=== PATIENT | female | born 1995 | race Caucasian/White ===

== ENCOUNTER → 2018-08-16 | Day surgery (SDC) | payer OTHER ==
[~2018-08-16] MED LIST: ACETAMINOPHEN 1000 MG/100 ML 100 ML IV ONE; ACETAMINOPHEN 1000 MG/100 ML IV ONE; ATROPINE SULFATE 1 MG/ML VIAL ONE; BUPIVACAINE 0.25% 30ML SDV INJ ONE; DEXAMETHASONE SOD PHOS INJ 4 MG/ML VIAL ONE; FENTANYL CITRATE/PF 100MCG/2 ML INJ ONE; FLAGYL500 MG PO; GLYCOPYRROLATE INJ 1MG/ 5 ML SYR ONE; IBUPROFEN400 MG PO; KETOROLAC TROME10 MG PO; LIDOCAINE HCL 2% LOCAL INJ 5 ML SDV VIAL INJ ONE; MIDAZOLAM HCL 2 MG/2 ML VIAL ONE; NEOSTIGMINE 5 MG/5ML SYR ONE; ONDANSETRON HCL INJ 2 MG/ML VIAL ONE; OXYMETAZOLINE HCL 0.05% NAS 1 SPRAY BTL ONE; PEPCID20 MG PO; PHENERGAN SUPP25 MG RC; PHENERGAN25 MG/1 ML PO; PREDNISONE20 MG PO; PROPOFOL IV EMULSION 10 MG/ML 20 ML VIAL ONE; ROCURONIUM BROMIDE 10 MG/ML 5ML VIAL ONE; SEVOFLURANE INHAL SOLN 250 ML PEN BTL ONE; ULTRAM50 MG PO; ZOFRAN4 MG PO
--- NOTE | 2018-08-16 13:24 | Operative Report ---
DATE OF PROCEDURE: August 16, 2018 PREOPERATIVE DIAGNOSES 1. Chronic adenotonsillitis. 2. Adenotonsillar hypertrophy. POSTOPERATIVE DIAGNOSES 1. Chronic adenotonsillitis. 2. Adenotonsillar hypertrophy. PROCEDURES: Tonsillectomy and adenoidectomy. SIGNIFICANT FINDINGS: Tonsils 3+/3+, scarred. Adenoids were mildly enlarged. INSPECTOR STRUCTURAL BONDING: None. ANESTHESIA: General endotracheal tube anesthesia. SPECIMENS REMOVED: Tonsils (adenoids coblated). ESTIMATED BLOOD LOSS: Less than 1 mL. COMPLICATIONS: None. INDICATIONS: Patient is a 23-year-old white female with a 4-year history of frequent tonsillar infections occurring 3 to 4 times per year. Each episode manifests as sore throat, odynophagia, intermittent fever, and enlarged, erythematous, exudative tonsils. She has been refractory to multiple courses of antibiotics which help temporarily. On examination, tonsils are 3+/3+ and scarred bilaterally. She is scheduled for tonsillectomy and adenoidectomy for the treatment of chronic adenotonsillitis and adenotonsillar hypertrophy. Risks and complications of the procedures were thoroughly discussed with the patient, and they include infection; bleeding; scarring; failure to improve; need for additional operations; damage to teeth, gums, tongue, and lips; chronic pain; persistent throat infections; voice changes; numbness of the tongue; inability to taste; leakage of fluid through the nose when drinking liquids, scarring of the pharynx resulting in permanent and worse nasal obstruction; need for blood transfusions; damage to surrounding nerves, blood vessels, and muscles. She fully understands and gives consent. PROCEDURE: Patient was taken to the operating room and placed supine on the operating table where general anesthesia was achieved through orotracheal intubation. Eyes were taped. Shoulder roll was placed. Head and body were draped. Table was turned 90 degrees with the head toward the surgeon. Decadron was administered. Niyah-Supa mouth gag was inserted without difficulty and placed in suspension on a Enamorado stand. There was no evidence of bifid uvula, diastasis of the muscular uvulae or a notched hard palate. Red rubber catheters were then inserted into the nose and brought out through the mouth to retract the soft palate. Examination of the nasopharynx revealed the adenoids to be mildly hypertrophied. Tonsils were 3+/3+ bilaterally. The left tonsil was grasped with a tonsillar Allis clamp and was removed with the ArthroCare Coblator on a setting of 6 on cut mode, taking care to stay right on the capsule of the tonsil. Right tonsil was removed in the same way. Both tonsillar beds were scarred, especially inferiorly. Hemostasis was obtained with the Coblator on a setting of 3 on coag mode. Following this, the adenoids were then removed with the ArthroCare Coblator on a setting of 8 on cut mode, taking care to avoid trauma to the torus tubarius bilaterally. Hemostasis was obtained with the Coblator on a setting of 3 and coag mode. Following this, injection with 3 mL of 1/4 percent plain Marcaine was injected into the free edges of the anterior and posterior tonsillar pillars bilaterally. Thorough irrigation was then performed. Stomach contents were suctioned with an NG tube. The red rubber catheters and Niyah-Supa mouth gag were then removed without difficulty revealing no trauma to the teeth, gums, tongue, and lips. Patient was awakened in the operating room, extubated and taken to recovery room in good condition. Job#: [id number] KIMI DYSON
[2018-08-16 13:55] VITALS: BP 101/60
== END | disposition home or self-care (01) ==
LOC: OR 09:41
PROVIDERS: ATTEND Otolaryngology
DX: J35.03 Chronic tonsillitis and adenoiditis (principal); E28.2 Polycystic ovarian syndrome; J45.909 Unspecified asthma, uncomplicated; E66.9 Obesity, unspecified; K21.9 Gastro-esophageal reflux disease without esophagitis; F41.9 Anxiety disorder, unspecified; F31.9 Bipolar disorder, unspecified; F17.210 Nicotine dependence, cigarettes, uncomplicated; Z88.0 Allergy status to penicillin; Z88.8 Allergy status to other drugs, medicaments and biological substances
CPT/HCPCS: 42821; 81025; 88304; J0131; J0461; J1100; J2001; J2250; J2405; J2704; J3490

== ENCOUNTER 2018-08-21 03:03 | Observation (INO) | payer OTHER ==
[~2018-08-21] VITALS: Ht 154.9 cm; Wt 114.8 kg
[2018-08-21] MEDS ORDERED: ONDANSETRON HCL INJ 2 MG/ML VIAL IV STA (03:12)
[2018-08-21] MEDS ORDERED: SODIUM CHLORIDE 0.9% 1000ML 1,000 ML IV ONE (03:15)
[2018-08-21 03:28] LABS: BASOPHILS % 0.3 % (0.0-1.0); EOSINOPHILS # (AUTO) 0.3 (0.0-0.4); HEMATOCRIT 40.9 % (34.2-44.1); HEMOGLOBIN 14.4 g/dL (12.0-16.0); LYMPHOCYTES # (AUTO) 2.8 (1.0-3.2); LYMPHOCYTES % 29.7 % (18.0-39.1); MEAN CORPUSCULAR HEMOGLOBIN 30.3 pg (28-32); MEAN CORPUSCULAR HGB CONC 35.2 g/dL (31-35); MEAN CORPUSCULAR VOLUME 86.1 fL (81-99); MONOCYTES # (AUTO) 0.5 (0.2-0.8); MONOCYTES % 4.8 % (4.4-11.3); NEUTROPHILS # (AUTO) 5.8 (2.1-6.9); NEUTROPHILS % 61.8 % (38.7-80.0); PLATELET COUNT 247 x10e3/uL (140-360); RED BLOOD COUNT 4.75 x10e6/uL (3.6-5.1); RED CELL DISTRIBUTION WIDTH 11.9 % (11.7-14.4)
[2018-08-21 03:34] LABS: CLARITY,URINE SL CLOUDY (CLEAR); COLOR,URINE ORANGE (YELLOW); LEUKOCYTE ESTERASE ,URINE TRACE (NEGATIVE); NITRITE,URINE NEGATIVE (NEGATIVE); PROTEIN,URINE DIPSTICK TRACE (NEGATIVE)
[2018-08-21 03:35] LABS: BACTERIA,URINE FEW /HPF; BILIRUBIN,URINE 1+ (NEGATIVE); EPITHELIAL CELLS,URINE FEW /LPF; KETONES,URINE 1+ (NEGATIVE); RBC,URINE 0-5 /HPF (0-5); URINE UROBILINOGEN 8 mg/dL (0.2 - 1); WBC,URINE (MAN) 0-5 /HPF (0-5)
[2018-08-21 03:46] LABS: ALANINE AMINOTRANSFERASE 130 IU/L (0-55); ALBUMIN 4.3 g/dL (3.5-5.0); ALBUMIN/GLOBULIN RATIO 1.2 (0.8-2.0); ALKALINE PHOSPHATASE 184 IU/L (40-150); ANION GAP 17.7 mmol/L (8-16); BLOOD UREA NITROGEN 10 mg/dL (7-26); BUN/CREATININE RATIO 15 (6-25); CALCIUM 10.2 mg/dL (8.4-10.2); CARBON DIOXIDE 23 mmol/L (22-29); CHLORIDE 99 mmol/L (98-107); CREATININE, SERUM 0.67 mg/dL (0.57-1.11); EST GLOMERULAR FILTRATION RATE > 60 ML/MIN (60-); GLUCOSE 97 mg/dL (74-118); POTASSIUM 3.7 mmol/L (3.5-5.1); SODIUM 136 mmol/L (136-145)
[2018-08-21] MEDS ORDERED: KETOROLAC TROMETHAMINE 30 MG/ML VIAL IV STA (04:14)
--- NOTE | 2018-08-21 04:17 | NUR ---
PT REQUESTING PAIN MEDCATION, AWARE, MEDICATED PER ORDERS
[2018-08-21 04:22] LABS: AMYLASE 68 U/L (25-125); LIPASE 63 U/L (8-78)
[2018-08-21] MEDS ORDERED: MORPHINE SULFATE 2 MG/ML SYR IV PRN (06:45)
--- NOTE | 2018-08-21 06:45 | NUR ---
report to arnold cesar
--- NOTE | 2018-08-21 06:45 | NUR ---
ASSUMED CARE AT THIS TIME. PATIENT AWAKE AND ALERT SITTING IN CHAIR IN LOBBY. RESP EVEN AND UNLABORED. SKIN WARM AND DRY. NO SIGNS OF ACUTE DISTRESS NOTED AT THIS TIME. DENIES ANY C/O AT THIS TIME.
[2018-08-21] MEDS: SODIUM CHLORIDE 0.9% 1000ML 1,000 ML IV SCH ×2 (07:23→14:52)
--- NOTE | 2018-08-21 07:31 | Diagnostic Imaging Report ---
EXAM: Right Upper Quadrant Ultrasound INDICATION: ^elevated lfts ^[id number] ^[id number] ^Y COMPARISON: None. TECHNIQUE: Transverse and longitudinal images of the right upper abdomen were obtained. Note: Some of the measurements have been obtained off line by radiologist. FINDINGS: Liver: Size: 13.6 cm in the right midclavicular line, normal Appearance: Heterogeneous echogenicity, smooth contour. Bright echogenic dots throughout a background of decreased liver parenchymal echogenicity with a starry grace appearance. Mass: No focal masses Gallbladder: Stones/Sludge: Mild sludge Wall: 0.3 cm Appearance: No wall thickening, pericholecystic fluid or hydrops. Sonographic Ayala's Sign: Negative Bile Ducts: Intrahepatic Ducts: No dilatation Extrahepatic Ducts: Common bile duct measures 0.3 cm, no dilatation Pancreas: Visualized portions of the pancreatic head, neck and proximal body are normal. Kidneys: Length: Right 11.8 cm Echogenicity: Normal Collecting System: No hydronephrosis Stone: None Cyst/Mass: None Vessels: Aorta: Visualized portions are normal Inferior Vena Cava: Visualized portions are normal Main Portal Vein: 0.9 cm, normal size with hepatopetal flow. Free Fluid: No ascites or pleural effusion IMPRESSION: Sonographic appearance of the liver is worrisome for acute liver inflammation such as hepatitis. Recommend follow-up ultrasound in 2-3 weeks. Mild gallbladder sludge. Signed by: Dr. Taylor Moreno M.D. on 08/21/2018 7:28 AM
--- OUTSIDE RECORDS SUMMARY | 2018-08-21 08:05 | XMS REPORT | Summary of Care ---
Author Author [facility] reed cleaner [place] Organization [facility] reed cleaner [place] Address Unknown Phone Unavailable Encounter BENI Gutierrez(FIN) [id number] Date(s): 12/14/17 - 12/14/17 [facility] reed cleaner [place] [address] [place], [place] [address] [phone] Discharge Disposition: Home or Self Care Attending Physician: Tamiko Saldivar MSN,RN,NP- Vital Signs Most recent to 1 oldest [Reference Range]: Height 154.94 cm (12/14/17 3:32 PM) Temperature Oral 98.0 DegF [96.4-99.1 DegF] (12/14/17 3:32 PM) Blood Pressure 131/71 mmHg [90-140/60-90 mmHg] (12/14/17 3:32 PM) Peripheral Pulse 69 bpm Rate [60-100 bpm] (12/14/17 3:32 PM) Weight 103.239 kg (12/14/17 3:32 PM) Body Mass Index 43 m2 (12/14/17 3:32 PM) Problem List Condition Effective Dates Status Health Status Informant Bipolar(Confirmed) Resolved Chlamydia(Confirmed) Resolved Hyperemesis Resolved gravidarum(Confirmed ) Morbid Active obesity(Confirmed) PCOS (polycystic Resolved ovarian syndrome)(Confirmed) Pre-eclampsia(Confir Resolved med) (Confirmed) 09/30/15 - 12/13/15 Resolved Allergies, Adverse Reactions, Alerts Substance Reaction Severity Status penicillins Moderate Active ziprasidone Mild Active Medications Prenate mini with DHA oral capsule 1 cap, PO, Daily, # 30 cap, 11 Refill(s), Pharmacy: [id number] Start Date: 12/14/17 Status: Ordered Results No data available for this section Immunizations No data available for this section Procedures Procedure Date Related Diagnosis Body Site Status Vaginal delivery of fetus 12/13/15 Completed Closed reduction of fracture of arm 2001 Completed Surgical removal of wisdom tooth Completed Social History Social History Type Response Substance Abuse Use: Past. Type: Methamphetamines. Frequency: Daily. Started age 19 Years. Stopped age 20 Years. Sexual Sexually active: Yes. Partner with STD? Yes. Sexual orientation: Straight or heterosexual. Uses condoms: No. Other contraceptive use: none. Last Pap Smear 2015. Alcohol Current1 Smoking Status Current every day smoker; Type: Cigarettes; Concerns about tobacco use in household: No; Lives with someone who smokes; Cigarette Smoking Last 365 Days Yes; Reg Smoking Cessation Counseling Yes; Tobacco use per day: 10; Number of years: 2; Started at age: 17.0; Stopped at age: 20; entered on: 12/14/17 1seldom Assessment and Plan No data available for this section
--- OUTSIDE RECORDS SUMMARY | 2018-08-21 08:05 | XMS REPORT | Summary of Care ---
Author Author [facility] project executive [employer] [place] Organization [facility] project executive [employer] [place] Address Unknown Phone Unavailable Encounter BENI Gutierrez(FIN) [phone] Date(s): 01/06/18 - 01/07/18 [facility] project executive [place] [address] [place], [place] [address] [phone] Vital Signs No data available for this section Problem List Condition Effective Dates Status Health Status Informant Bipolar(Confirmed) Resolved Chlamydia(Confirmed) Resolved Hyperemesis Resolved gravidarum(Confirmed ) Morbid Active obesity(Confirmed) PCOS (polycystic Resolved ovarian syndrome)(Confirmed) Pre-eclampsia(Confir Resolved med) (Confirmed) 09/30/15 - 12/13/15 Resolved Allergies, Adverse Reactions, Alerts Substance Reaction Severity Status penicillins Moderate Active ziprasidone Mild Active Medications metFORMIN 500 mg oral tablet 500 mg=1 tab, PO, TID, Increase dosage as tolerated Week 1- once a day Week 2 - twice a day Week 3- three times per day with meals, # 180 tab, 3 Refill(s), Pharmacy: [facility] [id number] Start Date: 01/06/18 Status: Ordered Results No data available for [...]
--- OUTSIDE RECORDS SUMMARY | 2018-08-21 08:05 | XMS REPORT | Summary of Care ---
Author Author [facility] tax attorney Summer [place] Organization [facility] tax attorney [place] Address Unknown Phone Unavailable Encounter HQ Monster_donavon(FIN) [phone] Date(s): 12/28/17 - 12/29/17 [facility] tax attorney Summer [place] [address] [place], [place] [address] [phone] Vital Signs No data available for this section Problem List Condition Effective Dates Status Health Status Informant Bipolar(Confirmed) Resolved Chlamydia(Confirmed) Resolved Hyperemesis Resolved gravidarum(Confirmed ) Morbid Active obesity(Confirmed) PCOS (polycystic Resolved ovarian syndrome)(Confirmed) Pre-eclampsia(Confir Resolved med) (Confirmed) 09/30/15 - 12/13/15 Resolved Allergies, Adverse Reactions, Alerts Substance Reaction Severity Status penicillins Moderate Active ziprasidone Mild Active Medications No data available for this section Results No data available for this section [...] Other contraceptive use: none. Last Pap Smear 2016. Alcohol Current1 Smoking Status Current every day [...]
--- OUTSIDE RECORDS SUMMARY | 2018-08-21 08:05 | XMS REPORT ---
Author Author [facility] Address Unknown Phone Unavailable Care Team Providers Care Box Spring Maker Name Role Phone Rohan BONILLA Unavailable Unavailable Problems This patient has no known problems. Allergies, Adverse Reactions, Alerts This patient has no known allergies or adverse reactions. Medications This patient has no known medications. Results Test Description Test Time Test Comments Text Results Atomic Results Result Comments US GALLBLADDER 2018-08-21 07:14:00 [place] [address] Patient Name: JOSE VELÁZQUEZ MR #: [id number] : 1995 Age/Sex: 23/F Req #: [id number] Adm Physician: Ordered by: MADY BONILLA MD Report #: [id number] Location: ER Room/Bed: Procedure: [id number] US/US GALLBLADDER Exam Date: 08/21/18 Exam Time: 526 REPORT STATUS: Signed EXAM: Right Upper Quadrant Ultrasound INDICATION: elevated lfts [id number] COMPARISON: None. TECHNIQUE: Transverse and longitudinal images of the right upper abdomen were obtained. Note: Some of the measurements have been obtained off line by radiologist. FINDINGS: Liver: Size: 13.6 cm in the right midclavicular line, normal Appearance: Heterogeneous echogenicity, smooth contour. Bright echogen ic dots throughout a background of decreased liver parenchymal echogenicity with a starry grace appearance. Mass: No focal masses Gallbladder: Stones/Sludge: Mild sludge Wall: 0.3 cm Appearance: No wall thickening, pericholecystic fluid or hydrops. Sonographic Ayala's Sign: Negative Bile Ducts: Intrahepatic Ducts: No dilatation Extrahepatic Ducts: Common bile duct measures 0.3 cm, no dilatation Pancreas: Visualized portions of the pancreatic head, neck and proximal body are normal. Kidneys: Length: Right 11.8 cm Echogenicity: Normal Collecting System: No hydronephrosis Stone: None Cyst/Mass: None Vessels: Aorta: Visualized portions are normal Inferior Vena Cava: Visualized portions are normal Main Portal Vein: 0.9 cm, normal size with hepatopetal flow. Free Fluid: No ascites or pleural effusion IMPRESSION: Sonographic appearance of the liver is worrisome for acute liver inflammation such as hepatitis. Recommend follow-up ultrasound in 2-3 weeks. Mild gallbladder sludge. Signed by: Dr. Kaia Goodman M.D. on 08/21/2018 7:28 AM Dictated By: KAIA GOODMAN MD 7 Transcribed By: WILNER on 08/21/18727 COPY TO: MADY BONILLA MD
--- OUTSIDE RECORDS SUMMARY | 2018-08-21 08:05 | XMS REPORT | Summary of Care ---
Author Author [facility] heat set operator [place] Organization [facility] heat set operator [place] Address Unknown Phone Unavailable Encounter BENI Gutierrez(FIN) [id number] Date(s): 12/14/17 - 12/14/17 [facility] heat set operator [place] [address] [place], [place] [address] [phone] Discharge Disposition: Home or Self Care Attending [...] Daily, # 30 cap, 11 Refill(s), Pharmacy: [facility] [id number] Start Date: 12/14/17 Status: Ordered Results No [...]
--- OUTSIDE RECORDS SUMMARY | 2018-08-21 08:05 | XMS REPORT | Continuity of Care Document ---
Author Author [facility] Interface Address Unknown Phone Unavailable Problems Problem Status Onset Date Classification Date Reported Comments Source Resolved 09/30/2015 Problem 03/22/[address] [facility] Bipolar Resolved Problem 03/22/[address] [facility] Chlamydia Resolved Problem 03/22/2018 [facility] Hyperemesis gravidarum Resolved Problem 03/22/2018 [facility] Morbid obesity Active Problem 03/22/2018 [facility] PCOS (<span ID="[id number]">Confirmed</span>) Resolved Problem 03/22/2018 [facility] Pre-eclampsia Resolved Problem 03/22/2018 [facility] Medications Medication Details Route Status Patient Instructions Ordering Provider Order Date Source Metformin hydrochloride 500 MG Oral Tablet 500 mg=1 tab, PO, TID, Increase dosage as tolerated Week 1- once a day Week 2- twice a day Week 3- three times per day with meals, # 180 tab, 3 Refill(s), Pharmacy: [facility] [id number] Active 01/06/2018 [facility] Prenate mini with DHA oral capsule 1 cap, PO, Daily, # 30 cap, 11 Refill(s), Pharmacy: [id number] Active 12/14/2017 [facility] Allergies, Adverse Reactions, Alerts Substance Category Reaction Severity Reaction type Status Date Reported Comments Source penicillins Assertion Moderate Drug allergy Active [facility] ziprasidone Assertion Mild Drug allergy Active [facility] Immunizations Immunization Date Given Site Status Last Updated Comments Source Results Order Name Results Value Reference Range Date Interpretation Comments Source Vital Signs Vital Sign Value Date Comments Source BMI Calculated 43 12/14/[address] [facility] Weight 103.239 12/14/[address] [facility] Temperature Oral (F) 98.0 F 12/14/2017 [facility] Heart Rate 69 12/14/2017 [facility] Height 154.94 cm 12/14/2017 [facility] Systolic (mm Hg) 131 12/14/[address] [facility] Diastolic (mm Hg) 71 12/14/2017 [facility] Encounters Location Location Details Encounter Type Encounter Number Reason For Visit Attending Provider ADM Date DC Date Status Source Outpatient [id number] TAMIKO SARKAR 12/14/[facility] windows admin [place] Outpatient [id number] Tamiko Stricklandan 12/14/2017 12/15/2017 [facility] windows admin [place] Phone Message [id number] 12/28/2017 12/30/2017 [facility] windows admin [place] Phone Message [id number] 12/29/2017 12/30/2017 [facility] windows admin [place] Phone Message [id number] 01/06/2018 01/08/2018 [facility] Procedures Procedure Code Date Perfomer Comments Source Vaginal delivery of fetus [id number] 12/13/2015 [facility] Closed reduction of fracture of arm [id number] 09/06/2001 [facility] Surgical removal of wisdom tooth [id number] [facility]
--- OUTSIDE RECORDS SUMMARY | 2018-08-21 08:05 | XMS REPORT | Summary of Care ---
Author Author [facility] procurement cost coordinator [place] Organization [facility] procurement cost coordinator [place] Address Unknown Phone Unavailable Encounter HQ Deshaunr_donavon(FIN) [id number] Date(s): 12/28/17 - 12/29/17 [facility] procurement cost coordinator [place] [address] [place], [place] [phone] Vital Signs No data available for this [...]
[2018-08-21 08:12] LABS: CHOL/HDL RATIO 3.5 (3.0-3.6)
[2018-08-21 08:14] VITALS: BP 128/68
[2018-08-21 08:21] VITALS: BP 128/68
[2018-08-21] MEDS: MORPHINE SULFATE INJ 4 MG/ML INJ IV PRN ×2 (08:26→13:30)
--- NOTE | 2018-08-21 10:20 | NUR ---
patient received from ER via . see admit assess. vitals stable with no distress. Dr Youssef has seen patient. awaiting echo. no complaints or distress.
[2018-08-21 11:25] VITALS: BP 126/68
--- NOTE | 2018-08-21 13:43 | History and Physical ---
PRIMARY CARE PHYSICIAN: None. CHIEF COMPLAINT: Intractable nausea and vomiting. HISTORY OF PRESENT ILLNESS: This is a 23-year-old woman who recently had a tonsillectomy on Wednesday earlier this week. Following the procedure, patient was okay, went home, developed difficulty with swallowing, had reduced oral intake. Also developed nausea and vomiting. Now come in to the hospital due to continued nausea and vomiting. Here, she was found to have acute hepatitis/transaminitis. She was admitted for further evaluation and management. PAST MEDICAL HISTORY: Polycystic ovarian syndrome on metformin, cigarette use. PAST SURGICAL HISTORY: Tonsillectomy 5 days ago. ALLERGIES: PER ELECTRONIC MEDICAL RECORD. FAMILY AND SOCIAL HISTORY: Patient smokes 5 cigarettes per day. No alcohol or illicits. MEDICATIONS: Per electronic medical record. REVIEW OF SYSTEMS: Denies any fevers, chills, sweats, leg pain, back pain, headache, vision changes, chest pain. No shortness of breath. PHYSICAL EXAMINATION VITAL SIGNS: Have been reviewed. GENERAL: A tired-appearing woman, resting in bed. HEENT: Anicteric. Oropharyngeal exam reveals visible surgical site from tonsillectomy which appears clean with minimal erythema. CARDIOVASCULAR: Normal S1, S2. LUNGS: She has moderate breath sounds. ABDOMEN: Soft, nontender, nondistended. Ayala sign is negative. Right upper quadrant is nontender. EXTREMITIES: No edema or calf tenderness. NEUROLOGIC: Alert and oriented x3. Moving all extremities. SKIN: Dry. PSYCHIATRIC: Normal affect. LABS: Reviewed. MEDICATIONS: Reviewed. ASSESSMENT: This is a 23-year-old woman with; 1. Acute transaminitis. 2. Acute hepatitis. 3. Gallbladder wall sludge. 4. Severe obesity, body mass index 45.3. 5. Patient is status post tonsillectomy. 6. Cigarette use. PLAN 1. Aggressive hydration. 2. Hepatitis panel. 3. GI consultation. 4. Keep patient n.p.o. 1. Obtain hemoglobin A1c and lipid panel. 2. Recheck LFTs later today. 3. SCDs and Pepcid for prophylaxis. 4. Disposition. Follow up repeat LFTs later today. Job#: [id number] CARLOS
[2018-08-21] MEDS ORDERED: SODIUM CHLORIDE 0.9% 1000ML 1,000 ML ONE (14:52)
[2018-08-21] MEDS: HYDROMORPHONE 2MG/ML 2 MG/ML ML IV PRN ×2 (14:56→21:04)
--- NOTE | 2018-08-21 15:15 | NUR ---
Report received and walking rounds complete. Pt A&O, pt resting in bed and in no apparent distress. All safety measures ensured, bed alarm on, and pt call sen near.
[2018-08-21 15:36] VITALS: BP 129/77
[2018-08-21] MEDS: FAMOTIDINE 20 MG/2 ML VIAL IV SCH (16:47)
[2018-08-21] MEDS: ONDANSETRON HCL INJ 2 MG/ML VIAL IV PRN (16:47)
[2018-08-21] MEDS ORDERED: KETOROLAC TROMETHAMINE 30 MG/ML VIAL IV ONE (17:00)
[2018-08-21 19:28] LABS: ALBUMIN 3.5 g/dL (3.5-5.0); BILIRUBIN,DIRECT 1.7 mg/dL (0.0-0.5)
[2018-08-21 20:00] VITALS: BP 118/56
[2018-08-21 21:00] VITALS: BP 118/56
[2018-08-22] VITALS: BP 132/76
[2018-08-22] MEDS ORDERED: SODIUM CHLORIDE 0.9% 1000ML 1,000 ML ONE (01:15)
[2018-08-22] MEDS ORDERED: ONDANSETRON HCL INJ 2 MG/ML VIAL ONE (01:21)
[2018-08-22] MEDS: ONDANSETRON HCL INJ 2 MG/ML VIAL IV PRN ×5 (01:34→23:46)
[2018-08-22] MEDS: KETOROLAC TROMETHAMINE 30 MG/ML VIAL IV PRN ×4 (01:34→19:58)
[2018-08-22] MEDS: SODIUM CHLORIDE 0.9% 1000ML 1,000 ML IV SCH ×5 (01:35→22:27)
[2018-08-22 04:00] VITALS: BP 141/62
[2018-08-22] MEDS: HYDROMORPHONE 2MG/ML 2 MG/ML ML IV PRN ×4 (04:07→23:36)
[2018-08-22 05:11] LABS: BASOPHILS % 0.2 % (0.0-1.0); EOSINOPHILS # (AUTO) 0.2 (0.0-0.4); HEMATOCRIT 33.7 % (34.2-44.1); HEMOGLOBIN 11.7 g/dL (12.0-16.0); LYMPHOCYTES # (AUTO) 1.7 (1.0-3.2); LYMPHOCYTES % 17.2 % (18.0-39.1); MEAN CORPUSCULAR HGB CONC 34.7 g/dL (31-35); MEAN CORPUSCULAR VOLUME 89.2 fL (81-99); MONOCYTES # (AUTO) 0.5 (0.2-0.8); MONOCYTES % 5.2 % (4.4-11.3); NEUTROPHILS # (AUTO) 7.3 (2.1-6.9); PLATELET COUNT 183 x10e3/uL (140-360); RED BLOOD COUNT 3.78 x10e6/uL (3.6-5.1); RED CELL DISTRIBUTION WIDTH 12.2 % (11.7-14.4)
[2018-08-22 05:42] LABS: ALANINE AMINOTRANSFERASE 81 IU/L (0-55); ALBUMIN 3.2 g/dL (3.5-5.0); ALBUMIN/GLOBULIN RATIO 1.1 (0.8-2.0); ALKALINE PHOSPHATASE 155 IU/L (40-150); ANION GAP 15.8 mmol/L (8-16); BLOOD UREA NITROGEN 12 mg/dL (7-26); BUN/CREATININE RATIO 20 (6-25); CALCIUM 8.9 mg/dL (8.4-10.2); CARBON DIOXIDE 21 mmol/L (22-29); CHLORIDE 106 mmol/L (98-107); CREATININE, SERUM 0.61 mg/dL (0.57-1.11); EST GLOMERULAR FILTRATION RATE > 60 ML/MIN (60-); GLUCOSE 85 mg/dL (74-118); SODIUM 138 mmol/L (136-145)
[2018-08-22 05:52] LABS: POTASSIUM 4.8 mmol/L (3.5-5.1)
--- NOTE | 2018-08-22 07:35 | NUR ---
Report given to oncoming nurse
[2018-08-22 08:00] VITALS: BP 127/63
[2018-08-22] MEDS: FAMOTIDINE 20 MG/2 ML VIAL IV SCH ×2 (08:12→16:24)
--- NOTE | 2018-08-22 09:05 | NUR ---
CASE MANAGEMENT INITIAL ASSESSMENT Mash Processing Operator to bedside to discuss plan of care with patient/family. CM/SW role and care transitions discussed. Anticipated discharge plan discussed along with duration of care. CM/SW discussed patients right to make decisions in care. CM/SW work hours given. Patient lives: IN PAK WITH Admit/Transfer: VIA ED FROM HOME POA/Emergency contact: MOTHER PAUL VASQUEZ [phone] OR DAD BRANDI [phone] Current/Previous Home Health: NONE PCP/Follow-up Care: Sofia OTT Current/Previous DME:NONE Other Services: NONE Employment Status: STAY AT HOME MOM Areas of Concerns: NONE Referral Needs: NONE Education Needs: NONE IMM/GARVEY given and signed (if applicable): NA Goal for discharge: RETURN HOME INDEPENDENTLY CM/SW left business card at the bedside with contact information. Name and number was also written on the patients whiteboard. Patient verbalized understanding of discussion. CM will follow-up with ongoing discharge and transition of care needs.
[2018-08-22] MEDS: METHYLPREDNISOLONE SOD SUCC 40 MG/ML VIAL IV SCH ×3 (09:20→22:27)
--- NOTE | 2018-08-22 10:30 | NUR ---
Ice pack taken to patient.
--- NOTE | 2018-08-22 12:55 | NUR ---
Ice pack taken to patient.
--- NOTE | 2018-08-22 16:04 | Consultation ---
DATE OF CONSULTATION: GASTROINTESTINAL CONSULTATION REFERRING PHYSICIAN: Dr. Mk Yosusef. REASON FOR CONSULTATION: Is acute hepatitis. HISTORY OF PRESENT ILLNESS: Ms. Melendez is a pleasant 23-year-old woman who had a tonsillectomy last week on Wednesday. She has trouble with postoperative pain. She was taking hydrocodone acetaminophen. By my account, she probably took roughly 3000 mg per day for 3 days, and then the bottle ran out. She denies any other Tylenol source. On Wednesday she had nausea and vomiting as well as the pain in her neck from the tonsillectomy. She notes over the past month or so she has had random occasional nausea and some abdominal discomfort which simply felt like gas. She denies any bowel habit changes. She has some mild upper abdominal discomfort. However, the pain in her neck is 13 out of 10 at times. She is currently on medications; and, therefore, it is controlled. They deny any prior history of abnormal liver tests. She has not been on any herbal supplements or other things. She has a 2-year-old at home, but the child has not been sick and is not exposed to daycare or other public places recently. There is no family history of liver problems. She does not drink alcohol. PAST MEDICAL HISTORY: Polycystic ovarian syndrome, on metformin although has not taken it recently. SURGICAL HISTORY: Tonsillectomy last Wednesday as mentioned in history of present illness. FAMILY HISTORY: There is a great aunt who may have some autoimmune problems. There is also some random cancer, heart failure and diabetes in the family; however, not in her immediate parent. MEDICATIONS AND ALLERGIES: REVIEWED. PLEASE SEE MAR MEDICATION RECONCILIATION FORM. REVIEW OF SYSTEMS: Twelve system review is positive for that mentioned in history of present illness, otherwise unremarkable. PHYSICAL EXAMINATION: GENERAL: She is pleasant, alert, obese no acute distress. HEENT: Pupils equal, round and reactive to light. Icterus is noted. NECK: Tender. CARDIAC: S1, S2. ABDOMEN: Soft. Mildly tender with deep palpation in the upper abdomen. No rebound, guarding or mass. EXTREMITIES: No clubbing, cyanosis or edema. PSYCH: Calm, cooperative. NEUROLOGIC: Nonfocal. HEME-ONC: No bruising or adenopathy. The electronic health record is reviewed for laboratory and radiologic studies as well as history. ASSESSMENT: 1. Elevated liver function tests with a pattern that is more cholestatic but improving with an elevated direct bilirubin component and less significant transaminitis. 1. Nausea, vomiting improved. 2. Recent tonsillectomy. RECOMMENDATION: My top items in the differential at the current time would be biliary versus drug reaction. We will want to get an MRCP to evaluate for any choledocholithiasis given the bilirubin over 4 although there was no ductal dilatation on the ultrasound. We will need to review in detail the anesthetic record and see if she received any perioperative antibiotics. Will need to follow up the pending acute hepatitis panel as well as send off for autoimmune. Plan of care was discussed with patient and family at bedside. Thank you very much for asking me to see Ms. Melendez. Any questions or concerns, please do not hesitate to contact me. Will follow with you . Job#: [id number] EV
[2018-08-22 16:28] VITALS: BP 124/60
[2018-08-22 20:00] VITALS: BP 133/80
[2018-08-23] MEDS: KETOROLAC TROMETHAMINE 30 MG/ML VIAL IV PRN ×4 (03:37→18:14)
[2018-08-23 04:00] VITALS: BP 130/66
[2018-08-23 05:18] LABS: INR 0.99
[2018-08-23] MEDS: SODIUM CHLORIDE 0.9% 1000ML 1,000 ML IV SCH ×5 (06:00→22:20)
[2018-08-23] MEDS: METHYLPREDNISOLONE SOD SUCC 40 MG/ML VIAL IV SCH ×3 (06:01→21:35)
[2018-08-23] MEDS: HYDROMORPHONE 2MG/ML 2 MG/ML ML IV PRN ×3 (06:40→20:56)
--- NOTE | 2018-08-23 06:52 | NUR ---
IM- Progress Note REVIEW OF SYSTEMS: Denies any fevers, chills, sweats, leg pain, back pain, headache, vision changes, chest pain. No shortness of breath. PHYSICAL EXAMINATION VITAL SIGNS: Have been reviewed. GENERAL: A tired-appearing woman, resting in bed. HEENT: Anicteric. Oropharyngeal exam reveals visible surgical site from tonsillectomy which appears clean with minimal erythema. CARDIOVASCULAR: Normal S1, S2. LUNGS: She has moderate breath sounds. ABDOMEN: Soft, nontender, nondistended. Ayala sign is negative. Right upper quadrant is nontender. EXTREMITIES: No edema or calf tenderness. NEUROLOGIC: Alert and oriented x3. Moving all extremities. SKIN: Dry. PSYCHIATRIC: Normal affect. LABS: Reviewed. MEDICATIONS: Reviewed. ASSESSMENT: This is a 23-year-old woman with; 1. Acute transaminitis. 2. Acute hepatitis. 3. Gallbladder wall sludge. 4. Severe obesity, body mass index 45.3. 5. Patient is status post tonsillectomy. 6. Cigarette use. PLAN 1. Aggressive hydration. 2. Hepatitis panel. 3. GI consultation. 4. Keep patient n.p.o. 1. Obtain hemoglobin A1c and lipid panel. 2. Recheck LFTs later today. 3. SCDs and Pepcid for prophylaxis. 4. Disposition. Follow up repeat LFTs later today. Improving lfts; increase fluids; f/u labs; Start solumedrol 40mg IV q8. consult ENT; cont toradol- only thing that controls her pain; d/w pt and grandmother at bedside; 08/23 Improving; f/u MRCP; f/u LFTs this am Mk Youssef MD, PhD.
[2018-08-23] MEDS ORDERED: PREDNISONE20 MG PO (07:19)
[2018-08-23] MEDS ORDERED: ZOFRAN4 MG PO (07:19)
[2018-08-23] MEDS ORDERED: PEPCID20 MG PO (07:19)
[2018-08-23] MEDS ORDERED: ULTRAM50 MG PO (07:20)
[2018-08-23 07:22] LABS: ALBUMIN 3.1 g/dL (3.5-5.0); BILIRUBIN,DIRECT 0.9 mg/dL (0.0-0.5)
[2018-08-23 08:35] VITALS: BP 137/82
[2018-08-23] MEDS: FAMOTIDINE 20 MG/2 ML VIAL IV SCH ×2 (08:46→17:00)
--- NOTE | 2018-08-23 09:16 | Consultation ---
DATE OF CONSULTATION: August 23, 2018 ATTENDING PHYSICIAN: Mk Youssef MD CHIEF COMPLAINT: Throat pain and vomiting. HISTORY OF PRESENT ILLNESS: The patient is a 23-year-old white female who was admitted on Tuesday, August 21, 2018, for severe sore throat, nausea and vomiting. She was admitted and was found to have elevated liver enzymes with a total bilirubin being 2.0, direct bilirubin of 0.9 and an ALT of 58. The patient is status post tonsillectomy and adenoidectomy 1 week ago on 08/16/2018. The patient initially was taking hydrocodone and acetaminophen elixir more frequently than had been recommended every 3 hours, but then went down to the maximal dosage every 4 hours on a regular basis since the surgery. The patient denies stiff neck. PAST MEDICAL HISTORY: Allergies, anxiety disorder, polycystic ovaries. PAST SURGICAL HISTORY: Tonsillectomy and adenoidectomy. MEDICATIONS PRIOR TO ADMISSION: Hydrocodone and acetaminophen elixir. ALLERGIES: PENICILLIN AND GEODON. SOCIAL HISTORY: She is a 5 cigarettes per day smoker. She is a nondrinker. PHYSICAL EXAMINATION GENERAL: The patient is an overweight white female appearing her stated age in no apparent distress with normal voice and no evidence of dyspnea. HEENT: Face is symmetric. Nasal exam is clear. Oral cavity: Oropharynx reveals normal findings except for findings consistent with the normal healing process following a tonsillectomy. There is no evidence of obstruction or any evidence of infection. NECK: Supple. There is no swelling or any palpable neck masses. ASSESSMENT 1. Throat pain, which is typical during the postoperative phase following a tonsillectomy 7 days after surgery. 2. Elevated liver enzymes due to uncertain etiology. Consider contribution from medicines (especially pain medicines) that are metabolized in the liver as possible cause of elevated liver enzymes. RECOMMENDATIONS: Recommend fluids. Recommend avoidance of medicines metabolized by the liver including antiemetics and pain medicines. Patient to follow up with me as an outpatient to check for adequate healing of the throat. RUBEN BENTON M.D. Job#: [id number] KIEL
[2018-08-23 12:48] VITALS: BP 118/56
[2018-08-23] MEDS: ONDANSETRON HCL INJ 2 MG/ML VIAL IV PRN ×3 (12:50→22:54)
--- NOTE | 2018-08-23 14:53 | Diagnostic Imaging Report ---
EXAM: MRI of the abdomen without contrast with MRCP INDICATION: Elevated LFTs. COMPARISON: None available. Correlation with ultrasound abdomen dated 08/21/2018. TECHNIQUE: Multiplanar, multisequence MRCP was performed, with sequences including coronal turbo spin-echo T1-weighted scans, [facility] scans, coronal spin, [facility]PR 2[facility] PERALES. No intravenous contrast. Discussion: LOWER THORAX: Unremarkable. HEPATOBILIARY: Mild heterogeneous signal intensity of the hepatic parenchyma diffusely. Cannot evaluate for hepatic steatosis due to the lack of interval out of phase scans. No focal hepatic lesions. No biliary ductal dilation. GALLBLADDER: No radio-opaque stones or sludge. No wall thickening. SPLEEN: No splenomegaly. PANCREAS: No focal masses or ductal dilatation. ADRENALS: No adrenal nodules KIDNEYS/URETERS: Kidneys enhance symmetrically. No hydronephrosis. No cystic or solid mass lesions. No stones. GI TRACT: No also dilatation to suggest obstruction. There is mild nodular wall thickening of the cecum and ascending colon which may reflect adherent stool. The appendix is unremarkable. LYMPH NODES: No lymphadenopathy. VESSELS: Unremarkable. PERITONEUM / RETROPERITONEUM: No free air or fluid. BONES: No suspicious lesions. SOFT TISSUES: Small volume of subcutaneous fluid in the mid to distal back. IMPRESSION: 1. Unremarkable gallbladder. No biliary dilatation, or choledocholithiasis. 2. Mild heterogeneity of the hepatic parenchyma diffusely is nonspecific. If clinical concern remains, consider further evaluation with dedicated MRI abdomen hepatic protocol without and with contrast (it may further characterize hepatic parenchyma). 3. Mild nodular wall thickening of the cecum and colon likely reflect adherent stool. Signed by: Dr. Rajan Napoles M.D. on 08/23/2018 2:50 PM
[2018-08-23 17:22] VITALS: BP 142/89
--- NOTE | 2018-08-23 18:30 | NUR ---
Patient moving to room 114, report called to receiving nurse.
--- NOTE | 2018-08-23 19:10 | NUR ---
REPORT RECEIVED FROM OFF GOING NURSE, PT SITTING UP IN BED ALERT AND ORIENTED, NO DISTRESS NOTED, DENIES NEEDS, BOYFRIEND AT BEDSIDE, INSTRUCTED TO CALL WITH NEEDS
[2018-08-23 20:00] VITALS: BP 118/63
--- NOTE | 2018-08-23 20:56 | NUR ---
PRN GIVEN FOR PAIN
[2018-08-23] MEDS ORDERED: FENTANYL 12MCG/HR PATCH TD SCH (23:00)
[2018-08-24] VITALS: BP 111/55
[2018-08-24] MEDS: SODIUM CHLORIDE 0.9% 1000ML 1,000 ML IV SCH ×2 (03:00→08:20)
[2018-08-24 04:00] VITALS: BP 112/63
[2018-08-24] MEDS: METHYLPREDNISOLONE SOD SUCC 40 MG/ML VIAL IV SCH (06:00)
[2018-08-24 06:08] LABS: ALBUMIN 3.5 g/dL (3.5-5.0); BILIRUBIN,DIRECT 0.4 mg/dL (0.0-0.5)
--- NOTE | 2018-08-24 06:38 | NUR ---
PT RESTING IN BED ALERT AND ORIENTED, NO DISTRESS NOTED, BOYFRIEND AT BEDSIDE, IV INFUSING PER ORDER, PT SEEMS TO HAVE DECREASED ANXIETY WITH PAIN, CALL LIGHT IN REACH, INSTRUCTED TO CALL WITH NEEDS
--- NOTE | 2018-08-24 07:00 | NUR ---
md martinez rounded. state pt is discharged to home. not snf
[2018-08-24] MEDS: KETOROLAC TROMETHAMINE 30 MG/ML VIAL IV PRN (07:15)
[2018-08-24] MEDS: ONDANSETRON HCL INJ 2 MG/ML VIAL IV PRN (07:19)
--- NOTE | 2018-08-24 07:29 | NUR ---
IM- Progress Note O/N: throat discomfort and nausea; some diarrhea REVIEW OF SYSTEMS: Denies any fevers, chills, sweats, leg pain, back pain, headache, vision changes, chest pain. No shortness of breath. PHYSICAL EXAMINATION VITAL SIGNS: Have been reviewed. GENERAL: A tired-appearing woman, resting in bed. HEENT: Anicteric. Oropharyngeal exam reveals visible surgical site from tonsillectomy which appears clean with minimal erythema. CARDIOVASCULAR: Normal S1, S2. LUNGS: She has moderate breath sounds. ABDOMEN: Soft, nontender, nondistended. Ayala sign is negative. Right upper quadrant is nontender. EXTREMITIES: No edema or calf tenderness. NEUROLOGIC: Alert and oriented x3. Moving all extremities. SKIN: Dry. PSYCHIATRIC: Normal affect. LABS: Reviewed. MEDICATIONS: Reviewed. ASSESSMENT: This is a 23-year-old woman with; 1. Acute transaminitis. 2. Acute hepatitis. 3. Gallbladder wall sludge. 4. Severe obesity, body mass index 45.3. 5. Patient is status post tonsillectomy. 6. Cigarette use. PLAN 1. Aggressive hydration. 2. Hepatitis panel. 3. GI consultation. 4. Keep patient n.p.o. 1. Obtain hemoglobin A1c and lipid panel. 2. Recheck LFTs later today. 3. SCDs and Pepcid for prophylaxis. 4. Disposition. Follow up repeat LFTs later today. Improving lfts; increase fluids; f/u labs; Start solumedrol 40mg IV q8. consult ENT; cont toradol- only thing that controls her pain; d/w pt and grandmother at bedside; 08/23 Improving; f/u MRCP; f/u LFTs this am 08/24 Had extensive discussion via telephone, with father, in presence of pt and spouse: Plan is to treat diarrhea with flagyl; use ibuprofen/toradol for pain; phenergan for nausea. flagyl for diarrhea; Use liquid diet for next 5 days; can d/c home and f/u with today; Alternatively, can go to SNF for continued pain mgmt; Mk Youssef MD, PhD.
[2018-08-24] MEDS ORDERED: FLAGYL500 MG PO (07:53)
[2018-08-24] MEDS ORDERED: PHENERGAN25 MG/1 ML PO (07:54)
[2018-08-24] MEDS ORDERED: PHENERGAN SUPP25 MG RC (07:55)
[2018-08-24] MEDS ORDERED: IBUPROFEN400 MG PO (07:56)
[2018-08-24] MEDS ORDERED: KETOROLAC TROME10 MG PO (07:56)
[2018-08-24 08:38] VITALS: BP 120/56
[2018-08-24 08:46] VITALS: BP 120/56
[2018-08-24] MEDS: FAMOTIDINE 20 MG/2 ML VIAL IV SCH (08:48)
--- NOTE | 2018-08-24 09:00 | NUR ---
md hopper rounded before dc and gave her prescriptions for pain med before going home. instructed to go to his office to get oral sedative. follow ups arranged and prescriptions given. iv dc pressure dressing applied and taped. pt is ready for dc at this time
--- NOTE | 2018-08-24 09:13 | NUR ---
pt is off unit via wheel chair
== END 2018-08-24 09:13 | disposition home or self-care (01) ==
LOC: ER 03:03 → IMCU 08:02 → INTOOBSV 08:02 → MED/SURG 08-23 18:53
PROVIDERS: ADMIT Internal Medicine; ATTEND Internal Medicine
DX: R74.0 Nonspecific elevation of levels of transaminase and lactic acid dehydrogenase [LDH] (principal); E86.0 Dehydration; R94.5 Abnormal results of liver function studies; B17.9 Acute viral hepatitis, unspecified; E66.01 Morbid (severe) obesity due to excess calories; Z68.42 Body mass index [BMI] 45.0-49.9, adult; Z72.0 Tobacco use; K82.9 Disease of gallbladder, unspecified; Z79.84 Long term (current) use of oral hypoglycemic drugs; E28.2 Polycystic ovarian syndrome; G89.18 Other acute postprocedural pain; Z88.0 Allergy status to penicillin; Z88.8 Allergy status to other drugs, medicaments and biological substances; R17 Unspecified jaundice; R19.7 Diarrhea, unspecified
CPT/HCPCS: 36415 ×4; 74181; 76705; 80053 ×2; 80061; 80076 ×3; 80329; 81001; 82150; 82248; 82390; 83036; 83690 ×2; 84702; 85025 ×2; 85610; 86039; 86255 ×2; 86376; 86644; 86645; 86663; 86664; 86665; 87529; 99284; G0378 ×4; J1170 ×3; J1885 ×4; J2270; J2405 ×4; J2920 ×3; J7030 ×4

== ENCOUNTER 2021-02-19 15:31 | Emergency (ER) | payer OTHER ==
[~2021-02-19] VITALS: Ht 154.9 cm; Wt 120.2 kg
[~2021-02-19 15:31] MED LIST changes: -ACETAMINOPHEN 1000 MG/100 ML 100 ML IV ONE; -ACETAMINOPHEN 1000 MG/100 ML IV ONE; -ATROPINE SULFATE 1 MG/ML VIAL ONE; -BUPIVACAINE 0.25% 30ML SDV INJ ONE; -DEXAMETHASONE SOD PHOS INJ 4 MG/ML VIAL ONE; -FENTANYL CITRATE/PF 100MCG/2 ML INJ ONE; -GLYCOPYRROLATE INJ 1MG/ 5 ML SYR ONE; -LIDOCAINE HCL 2% LOCAL INJ 5 ML SDV VIAL INJ ONE; -MIDAZOLAM HCL 2 MG/2 ML VIAL ONE; -NEOSTIGMINE 5 MG/5ML SYR ONE; -ONDANSETRON HCL INJ 2 MG/ML VIAL ONE; -OXYMETAZOLINE HCL 0.05% NAS 1 SPRAY BTL ONE; -PROPOFOL IV EMULSION 10 MG/ML 20 ML VIAL ONE; -ROCURONIUM BROMIDE 10 MG/ML 5ML VIAL ONE; -SEVOFLURANE INHAL SOLN 250 ML PEN BTL ONE
[2021-02-19] MEDS ORDERED: NAPROSYN500 MG PO (16:57)
== END 2021-02-19 17:30 | disposition home or self-care (01) ==
LOC: FSED 15:37
DX: M25.562 Pain in left knee (principal); M79.662 Pain in left lower leg; E28.2 Polycystic ovarian syndrome; E66.9 Obesity, unspecified; F17.210 Nicotine dependence, cigarettes, uncomplicated
CPT/HCPCS: 99283

== ENCOUNTER 2021-02-20 09:59 | Emergency (ER) | payer OTHER ==
[~2021-02-20] VITALS: Ht 154.9 cm; Wt 120.2 kg
[~2021-02-20 09:59] MED LIST changes: +NAPROSYN500 MG PO
[2021-02-20] MEDS ORDERED: KETOROLAC TROMETHAMINE 30 MG/ML VIAL IM STA (11:02)
== END 2021-02-20 12:30 | disposition home or self-care (01) ==
LOC: ER 10:45
DX: M79.605 Pain in left leg (principal); E28.2 Polycystic ovarian syndrome; E66.9 Obesity, unspecified
CPT/HCPCS: 93971; 99283; J1885

== ENCOUNTER 2021-06-12 10:45 | Emergency (ER) | payer OTHER ==
[~2021-06-12] VITALS: Ht 154.9 cm; Wt 104.3 kg
[2021-06-12] MEDS ORDERED: CLEOCIN HCL300 MG PO (12:05)
[2021-06-12] MEDS ORDERED: BACTRIM DS TAB1 EACH PO (12:06)
[2021-06-12] MEDS ORDERED: MUPIROCIN22 GM TOP (12:12)
[2021-06-12] MEDS ORDERED: ULTRAM 50MG50 MG PO (12:13)
== END 2021-06-12 12:30 | disposition home or self-care (01) ==
LOC: FSED 10:59
DX: L04.0 Acute lymphadenitis of face, head and neck (principal); M54.2 Cervicalgia; F17.290 Nicotine dependence, other tobacco product, uncomplicated
CPT/HCPCS: 99282

== ENCOUNTER 2021-07-13 10:13 | Emergency (ER) | payer OTHER ==
[~2021-07-13] VITALS: Ht 154.9 cm; Wt 104.3 kg
[~2021-07-13 10:13] MED LIST changes: +BACTRIM DS TAB1 EACH PO; +CLEOCIN HCL300 MG PO; +MUPIROCIN22 GM TOP; +ULTRAM 50MG50 MG PO
[2021-07-13] MEDS ORDERED: CASIRIVIMAB/IMDEVIMAB 10 ML in SODIUM CHLORIDE 0.9% 100 ML IV ONE (10:30)
== END 2021-07-13 11:09 | disposition home or self-care (01) ==
LOC: ER 10:46
DX: U07.1 COVID-19 (principal); R05.9 Cough, unspecified; R51.9 Headache, unspecified; R53.81 Other malaise; E28.2 Polycystic ovarian syndrome; F17.210 Nicotine dependence, cigarettes, uncomplicated
CPT/HCPCS: 99283

== ENCOUNTER 2021-07-21 09:14 | Emergency (ER) | payer OTHER ==
[~2021-07-21] VITALS: Ht 154.9 cm; Wt 117.9 kg
[2021-07-21 09:49] LABS: BASOPHILS % 0.5 % (0.0-1.0); EOSINOPHILS # (AUTO) 0.4 (0.0-0.4); EOSINOPHILS % 4.2 % (0.0-6.0); HEMATOCRIT 38.8 % (34.2-44.1); HEMOGLOBIN 13.4 g/dL (12.0-16.0); LYMPHOCYTES # (AUTO) 3.3 (1.0-3.2); LYMPHOCYTES % 40.5 % (18.0-39.1); MEAN CORPUSCULAR HEMOGLOBIN 29.3 pg (28-32); MEAN CORPUSCULAR HGB CONC 34.5 g/dL (31-35); MEAN CORPUSCULAR VOLUME 84.7 fL (81-99); MONOCYTES # (AUTO) 0.3 (0.2-0.8); NEUTROPHILS # (AUTO) 4.1 (2.1-6.9); NEUTROPHILS % 49.8 % (38.7-80.0); PLATELET COUNT 260 x10e3/uL (140-360); RED BLOOD COUNT 4.58 x10e6/uL (3.6-5.1); RED CELL DISTRIBUTION WIDTH 12.8 % (11.7-14.4)
[2021-07-21 10:06] LABS: ANION GAP 16.1 mmol/L (8-16); CALCIUM 9.5 mg/dL (8.4-10.2); CREATININE, SERUM 0.73 mg/dL (0.57-1.11); POTASSIUM 4.1 mmol/L (3.5-5.1)
[2021-07-21] MEDS: Morphine 4mg Syringe 4 MG/ML INJ IV PRN ×2 (10:41→11:24)
[2021-07-21] MEDS ORDERED: KETOROLAC TROMETHAMINE 30 MG/ML VIAL IV STA ×2 (11:07→11:08)
[2021-07-21] MEDS ORDERED: ACETAMINOPHEN-1 EAC4 PO (12:37)
[2021-07-21 12:38] LABS: CLARITY,URINE CLEAR (CLEAR); COLOR,URINE YELLOW (YELLOW); KETONES,URINE NEGATIVE (NEGATIVE); LEUKOCYTE ESTERASE ,URINE NEGATIVE (NEGATIVE); NITRITE,URINE NEGATIVE (NEGATIVE); PROTEIN,URINE DIPSTICK NEGATIVE (NEGATIVE); URINE UROBILINOGEN 0.2 mg/dL (0.2 - 1)
[2021-07-21] MEDS ORDERED: FLOMAX0.4 MG PO (12:39)
[2021-07-21 12:40] LABS: AMPHETAMINES SCREEN,URINE NEGATIVE (NEGATIVE); PHENCYCLIDINE SCREEN,URINE NEGATIVE (NEGATIVE)
[2021-07-21] MEDS ORDERED: ONDANSETRON ODT4 MG PO (12:40)
[2021-07-21 12:41] LABS: BENZODIAZEPINES SCREEN,URINE POSITIVE (NEGATIVE)
[2021-07-21 12:48] LABS: BACTERIA,URINE FEW /HPF; EPITHELIAL CELLS,URINE MODERATE /LPF; WBC,URINE (MAN) 0-5 /HPF (0-5)
[2021-07-21 13:05] VITALS: BP 126/57
== END 2021-07-21 13:07 | disposition home or self-care (01) ==
LOC: ER 09:24
DX: R10.32 Left lower quadrant pain (principal); N13.2 Hydronephrosis with renal and ureteral calculous obstruction; R11.2 Nausea with vomiting, unspecified
CPT/HCPCS: 36415; 74176; 76830; 76856; 80048; 80307; 81001; 84702; 85025; 99284; J1885; J2270

== ENCOUNTER 2021-07-28 07:41 | Emergency (ER) | payer OTHER ==
[~2021-07-28] VITALS: Ht 154.9 cm; Wt 117.9 kg
[~2021-07-28 07:41] MED LIST changes: +ACETAMINOPHEN-1 EAC4 PO; +FLOMAX0.4 MG PO; +ONDANSETRON ODT4 MG PO
[2021-07-28] MEDS ORDERED: ONDANSETRON HCL INJ 2MG/ML 2ML 2 MG/ML VIAL IV STA (07:47)
[2021-07-28] MEDS ORDERED: KETOROLAC TROMETHAMINE 30 MG/ML VIAL IV STA (07:47)
[2021-07-28 08:11] LABS: BASOPHILS # (AUTO) 0.1 (0.0-0.1); BASOPHILS % 0.6 % (0.0-1.0); EOSINOPHILS # (AUTO) 0.5 (0.0-0.4); EOSINOPHILS % 6.7 % (0.0-6.0); HEMOGLOBIN 13.4 g/dL (12.0-16.0); LYMPHOCYTES # (AUTO) 2.8 (1.0-3.2); LYMPHOCYTES % 36.1 % (18.0-39.1); MEAN CORPUSCULAR HEMOGLOBIN 29.6 pg (28-32); MEAN CORPUSCULAR HGB CONC 34.4 g/dL (31-35); MEAN CORPUSCULAR VOLUME 86.3 fL (81-99); MONOCYTES # (AUTO) 0.3 (0.2-0.8); MONOCYTES % 4.3 % (4.4-11.3); PLATELET COUNT 288 x10e3/uL (140-360); RED BLOOD COUNT 4.52 x10e6/uL (3.6-5.1); RED CELL DISTRIBUTION WIDTH 12.8 % (11.7-14.4)
[2021-07-28 08:33] LABS: ANION GAP 17.2 mmol/L (8-16); CALCIUM 10.1 mg/dL (8.4-10.2); CLARITY,URINE CLEAR (CLEAR); COLOR,URINE YELLOW (YELLOW); CREATININE, SERUM 0.74 mg/dL (0.57-1.11); KETONES,URINE NEGATIVE (NEGATIVE); LEUKOCYTE ESTERASE ,URINE NEGATIVE (NEGATIVE); NITRITE,URINE NEGATIVE (NEGATIVE); POTASSIUM 4.2 mmol/L (3.5-5.1); PROTEIN,URINE DIPSTICK NEGATIVE (NEGATIVE); URINE UROBILINOGEN 0.2 mg/dL (0.2 - 1)
[2021-07-28 08:42] LABS: BACTERIA,URINE MODERATE /HPF; EPITHELIAL CELLS,URINE MODERATE /LPF; WBC,URINE (MAN) 0-5 /HPF (0-5)
[2021-07-28] MEDS ORDERED: CEFDINIR300 MG PO (09:28)
[2021-07-28 09:41] VITALS: BP 128/99
== END 2021-07-28 09:43 | disposition home or self-care (01) ==
LOC: ER 07:50
DX: R10.32 Left lower quadrant pain (principal); N20.0 Calculus of kidney; R11.2 Nausea with vomiting, unspecified; J45.909 Unspecified asthma, uncomplicated; E28.2 Polycystic ovarian syndrome
CPT/HCPCS: 36415; 74018; 80048; 81001; 84702; 85025; 87086; 99284; J1885; J2405

== ENCOUNTER 2022-05-13 21:24 | Emergency (ER) | payer OTHER ==
[~2022-05-13] VITALS: Ht 154.9 cm; Wt 113.4 kg
[~2022-05-13 21:24] MED LIST changes: +CEFDINIR300 MG PO
[2022-05-13] MEDS ORDERED: HYDROCODONE/APAP 10MG-325MG TAB PO ONE (22:15)
[2022-05-13] MEDS ORDERED: NAPROSYN500 MG PO ×2 (23:06→23:12)
[2022-05-13] MEDS ORDERED: HYDROCODON-ACE1 EAC9 PO ×2 (23:06→23:12)
== END 2022-05-13 23:59 | disposition home or self-care (01) ==
LOC: ER 22:00
DX: R50.9 Fever, unspecified (principal); S80.211A Abrasion, right knee, initial encounter; S80.01XA Contusion of right knee, initial encounter; W01.0XXA Fall on same level from slipping, tripping and stumbling without subsequent striking against object, initial encounter; Y93.02 Activity, running; Y92.89 Other specified places as the place of occurrence of the external cause; J45.909 Unspecified asthma, uncomplicated; E28.2 Polycystic ovarian syndrome; Z87.442 Personal history of urinary calculi
CPT/HCPCS: 99283